=== PATIENT | female | born 1995 | race Caucasian/White ===

== ENCOUNTER 2024-05-13 08:39 | Emergency (ER) | payer OTHER, SELFPAY ==
[2024-05-13] VITALS (12 sets, daily range): BP systolic 105–172; BP diastolic 57–92; PULSE 69–92; RESP 18; TEMP 36.2; O2SAT 94–100; BMI 29.0
--- NOTE | 2024-05-13 08:57 | ED.GENADULT ---
HPI - General Adult General Chief complaint: Abdominal Pain Stated complaint: Throwing up , Stomach pain Time Seen by Provider: 05/13/24 08:44 Source: patient and family Mode of arrival: Ambulatory History of Present Illness HPI narrative: Patient is a 28-year-old female here for evaluation of epigastric abdominal pain and throwing up this started last evening. No recent travel. No recent antibiotics. No known sick contacts. Patient has family at bedside who states that this is something that happens to her about 1 time a month. She has been seen multiple times at multiple emergency departments in his even seen a GI doctor about the symptoms. She had a upper endoscopy done a little under 1 year ago. No specific diagnosis found. Related Data Previous Rx's Medication Instructions Recorded ondansetron 4 mg disintegrating 4 mg PO Q6H PRN nausea and 05/13/24 tablet vomiting #20 tabs Allergies Allergy/AdvReac Type Severity Reaction Status Date / Time No Known Drug Allergies Allergy Verified 05/13/24 08:55 Review of Systems Review of Systems ROS Unobtainable: All systems reviewed & are unremarkable except as noted in HPI and below Patient History Social History Smoking Status: Never smoker Smoking Status: Never smoker alcohol intake frequency: holidays/special occasions only Substance Use Type: does not use Exam Initial Vital Signs Initial Vital Signs: Vital Signs Pulse Rate 73 05/13/24 08:50 Pulse Oximetry 94 05/13/24 08:50 Const General: cooperative and No ill appearing Resp Effort & Inspection: normal respiratory effort Cardio Rate: regular rate GI Inspection: normal to inspection and non-distended Skin General: no rashes or lesions noted Neuro General: patient alert Course Orders Ordered: ED Orders 05/13/24 09:05 Complete Blood Count AUTO DIFF Stat Comprehensive Metabolic Panel Stat Lipase Stat Test Serum,Qual Stat Discontinued Medications Haloperidol (Haloperidol 5 Mg/Ml Vial) 5 mg IV NOW ONE Stop: 05/13/24 10:08 Last Admin: 05/13/24 10:10 Dose: 5 mg Documented By: LASHAY Sodium Chloride (Normal Saline 0.9%) 1,000 mls @ 1,000 mls/hr IV BOLUS ONE Stop: 05/13/24 09:43 Last Infusion: 05/13/24 09:52 Dose: Infused Documented By: Admin: 05/13/24 09:14 Dose: 1,000 mls/hr Documented By: RB Sodium Chloride (Normal Saline 0.9%) 1,000 mls @ 1,000 mls/hr IV BOLUS ONE Stop: 05/13/24 10:38 Last Infusion: 05/13/24 10:48 Dose: Infused Documented By: Admin: 05/13/24 09:47 Dose: 1,000 mls/hr Documented By: RL Lorazepam (Lorazepam 2 Mg/Ml Inj) 1 mg IV NOW ONE Stop: 05/13/24 09:40 Last Admin: 05/13/24 09:47 Dose: 1 mg Documented By: RL Ondansetron HCl (Ondansetron 4 Mg/2 Ml Inj) 4 mg IV NOW ONE Stop: 05/13/24 08:45 Last Admin: 05/13/24 09:14 Dose: 4 mg Documented By: RB Pantoprazole Sodium (Pantoprazole 40 Mg Vial) 20 mg IV NOW ONE Stop: 05/13/24 08:54 Last Admin: 05/13/24 09:14 Dose: 20 mg Documented By: [email or web address] Vital Signs Vital signs: Vital Signs - 8 hr 05/13/24 08:50 05/13/24 08:52 05/13/24 08:52 Temperature Pulse Rate 73 69 Respiratory Rate Blood Pressure 144/92 H Pulse Oximetry 94 97 Oxygen Delivery Method 05/13/24 08:55 05/13/24 09:00 05/13/24 09:07 Temperature 97.2 F L Pulse Rate 72 74 Respiratory Rate 18 Blood Pressure 144/92 H 172/82 H Pulse Oximetry 98 100 Oxygen Delivery Method Room Air 05/13/24 09:07 05/13/24 09:30 05/13/24 09:31 Temperature Pulse Rate 78 71 Respiratory Rate Blood Pressure 118/69 Pulse Oximetry 100 100 Oxygen Delivery Method 05/13/24 09:31 05/13/24 10:00 05/13/24 10:00 Temperature Pulse Rate 72 78 Respiratory Rate Blood Pressure 124/75 Pulse Oximetry 100 96 Oxygen Delivery Method 05/13/24 10:30 05/13/24 10:30 05/13/24 11:00 Temperature Pulse Rate 87 Respiratory Rate Blood Pressure 105/57 L 114/71 Pulse Oximetry 99 Oxygen Delivery Method 05/13/24 11:00 05/13/24 11:30 05/13/24 11:30 Temperature Pulse Rate 92 H 86 Respiratory Rate Blood Pressure 115/66 Pulse Oximetry 99 98 Oxygen Delivery Method Medical Decision Making Lab Data Lab results reviewed: Yes I reviewed the patient's lab results. 05/13/24 09:05 05/13/24 09:05 Labs: Lab Results 05/13/24 Range/Units 09:05 WBC 15.6 H (4.5-11.0) X10^3/uL RBC 4.43 (4.0-5.2) X10^6/uL Hgb 14.4 (12.0-16.0) g/dL Hct 41.5 (36-46) % MCV 93.6 (80-100) fL MCH 32.5 (26-34) PG MCHC 34.8 (30-36) % RDW 12.7 (11.6-14.8) % Plt Count 203 (150-400) X10^3/uL Neut % (Auto) 94.8 H (50-75) % Lymph % (Auto) 2.8 L (25-40) % [place] % (Auto) 2.3 L (3-14) % Eos % (Auto) 0.0 L (2-4) % Baso % (Auto) 0.1 (0-2) % Neut # (Auto) 68053 H (3062-6401) /uL Lymph # (Auto) 400 L (9285-1728) /uL [place] # (Auto) 400 (0-900) /uL Eos # (Auto) 0 (0-450) /uL Baso # (Auto) 0 (0-100) /uL Sodium 136 L (137-145) mmol/L Potassium 3.9 (3.4-5.1) mmol/L Chloride 106 (98-107) mmol/L Carbon Dioxide 22 (22-32) mmol/L BUN 19 H (7-17) mg/dL Creatinine 0.92 (0.52-1.04) mg/dL Estimated GFR > 60 (>60) mL/min BUN/Creatinine Ratio 20.7 (6-22) Glucose 151 H (70-100) mg/dL Calcium 9.3 (8.4-10.2) mg/dL Total Bilirubin 1.1 (0.2-1.3) mg/dL AST 25 (14-36) IU/L ALT 24 (<35) IU/L Alkaline Phosphatase 76 (38-126) U/L Total Protein 7.8 (6.3-8.2) g/dL Albumin 4.4 (3.5-5.0) g/dL Globulin 3.4 (1.7-4.1) g/dL Albumin/Globulin Ratio 1.3 (1.0-2.8) Lipase 67 (23-300) U/L Serum , Qual Negative (Negative) MDM Narrative Medical decision making narrative: Patient does have a leukocytosis but I suspect that this is related to vomiting. Family member states that she has been diagnosed with cyclic vomiting which does correspond to her presentation today. After medications here in the ER patient was feeling much better. Was able to tolerate oral intake. She was able to urinate. I will refill the ondansetron. No indication for advanced imaging today based on her history and physical exam. Patient was given return precautions. Discharge Plan Departure Patient Disposition: Home Clinical Impression: Abdominal pain, Vomiting Instructions: DI for Abdominal Pain-Adult, DI for Vomiting -- Adult Activity Restrictions/Additional Instructions: Use the nausea medication as needed. Be sure that you are trying to increase your fluid intake by drinking small amounts more frequently. Recommend a bland diet for now that you can advanced as tolerated. Return to the emergency department for new symptoms. Prescriptions: New ondansetron 4 mg tablet,disintegrating 4 mg PO Q6H PRN (Reason: nausea and vomiting) Qty: 20 0RF Referrals: ProviderMitul [Primary Care Provider] - Stand Alone Forms: Patient Portal/API
[2024-05-13 09:14] LABS: Add Manual Diff / Slide Review NO; Basophils Absolute Auto 0 /uL (0-100); Basophils Percent Auto 0.1 % (0-2); Eosinophils Absolute Auto 0 /uL (0-450); Hematocrit 41.5 % (36-46); Hemoglobin 14.4 g/dL (12.0-16.0); Lymphocytes Absolute Auto 400 /uL (1100-4500); Lymphocytes Percent Auto 2.8 % (25-40); Mean Corpuscular HGB Conc 34.8 % (30-36); Mean Corpuscular Hemoglobin 32.5 PG (26-34); Mean Corpuscular Volume 93.6 fL (80-100); Monocytes Absolute Auto 400 /uL (0-900); Monocytes Percent Auto 2.3 % (3-14); Neutrophils Absolute Auto 14800 /uL (1500-7000); Neutrophils Percent Auto 94.8 % (50-75); Platelet Count 203 X10^3/uL (150-400); Red Blood Cell Count 4.43 X10^6/uL (4.0-5.2); Red Cell Distribution Width 12.7 % (11.6-14.8); White Blood Cell Count 15.6 X10^3/uL (4.5-11.0)
[2024-05-13] MEDS: PANTOPRAZOLE 40 MG VIAL 20 MG IV (09:14)
[2024-05-13] MEDS: ONDANSETRON 4 MG/2 ML INJ IV (09:14)
[2024-05-13] MEDS: SODIUM CHLORIDE 0.9% 1,000 ML 1000 ML IV ×2 (09:14→09:47)
[2024-05-13 09:31] LABS: Alanine Aminotransferase 24 IU/L (<35); Albumin 4.4 g/dL (3.5-5.0); Albumin Globulin Ratio 1.3 (1.0-2.8); Alkaline Phosphatase 76 U/L (38-126); Aspartate Aminotransferase 25 IU/L (14-36); BUN Creatinine Ratio 20.7 (6-22); Bilirubin Total 1.1 mg/dL (0.2-1.3); Blood Urea Nitrogen 19 mg/dL (7-17); Calcium 9.3 mg/dL (8.4-10.2); Carbon Dioxide 22 mmol/L (22-32); Chloride 106 mmol/L (98-107); Estimated Glomerular Filt Rate > 60 mL/min (>60); Globulin 3.4 g/dL (1.7-4.1); Glucose 151 mg/dL (70-100); HEMOLYSIS < 15 (0-50); Lipase 67 U/L (23-300); Potassium 3.9 mmol/L (3.4-5.1); Sodium 136 mmol/L (137-145); Total Protein 7.8 g/dL (6.3-8.2)
[2024-05-13 09:34] LABS: Pregnancy Test Serum,Qual Negative (Negative)
[2024-05-13] MEDS: LORazepam 2 MG/ML INJ 1 MG IV (09:47)
[2024-05-13] MEDS: HALOPERIDOL 5 MG/ML VIAL IV (10:10)
== END 2024-05-13 12:40 | disposition home or self-care (01) ==
PROVIDERS: Emergency Provider Emergency Medicine
DX: R10.13 Epigastric pain (principal); R11.10 Vomiting, unspecified
CPT/HCPCS: 80053; 83690; 84703; 85025; 96361; 96374; 96375; 99283; 99284; C9113; J1630; J2060; J2405